=== PATIENT | male | born 1945 | race Caucasian/White ===

== ENCOUNTER 2020-12-25 08:32 | Inpatient (IN) ==
[2020-12-25] MEDS ORDERED: *HR* Ticagrelor 90 MG TABLET PO STA (08:52)
[2020-12-25] MEDS ORDERED: ISOVUE-370 200 ML INFUS..BTL ONE (08:53)
[2020-12-25] MEDS ORDERED: Heparin 1,000 UNITS/500 mL 500 ML ONE (08:53)
[2020-12-25] MEDS ORDERED: 0.9 % Sodium Chloride 1,000 ML ONE ×2 (08:53→08:55)
[2020-12-25] MEDS ORDERED: Nitroglycerin 1,000 MCG/5 ML VIAL IV ONE (08:53)
[2020-12-25] MEDS ORDERED: *HR* Heparin 10,000 UNIT/10 ML VIAL ONE (08:53)
[2020-12-25] MEDS ORDERED: Aspirin 325 MG TABLET PO ONE (08:54)
[2020-12-25] MEDS ORDERED: Aspirin 81 MG TAB.CHEW ONE (08:55)
[2020-12-25] MEDS ORDERED: *HR* Heparin 5,000 UNIT/ML VIAL ONE (08:55)
[2020-12-25] MEDS ORDERED: *HR* Ticagrelor 90 MG TABLET ONE (08:55)
[2020-12-25] MEDS ORDERED: *HR* Heparin 5,000 UNIT/ML VIAL IVP STA (08:55)
[2020-12-25 08:58] LABS: Basophils # 0.1 K/mcL (0.0-0.2); Basophils % 1.1 %; Eosinophils # 0.2 K/mcL (0.0-0.6); Hematocrit 40.2 % (37.5-50.1); Hemoglobin 13.8 g/dL (12.9-16.9); Immature Granulocytes % 0.2 % (0-4); Lymphocytes # 1.7 K/mcL (0.6-4.6); Lymphocytes % 29.9 %; Mean Corpuscular HGB Conc 34.3 g/dL (31.6-35.5); Mean Corpuscular Hemoglobin 32.7 pg (28.0-33.3); Mean Corpuscular Volume 95.3 fL (83.0-100.0); Mean Platelet Volume 9.8 fL (9.4-12.4); Monocytes # 0.5 K/mcL (0.0-1.3); Monocytes % 8.8 %; Neutrophils # 3.2 K/mcL (1.6-8.9); Platelet Count 149 K/mcL (140-400); Red Blood Count 4.22 M/mcL (4.19-5.50); Red Cell Distribution Width 14.3 % (11.5-14.5); White Blood Count 5.7 K/mcL (4.3-11.1)
[2020-12-25] MEDS ORDERED: 0.9 % Sodium Chloride 500 ML IVC ONE (08:59)
[2020-12-25] MEDS ORDERED: *HR* FentaNYL (PF) 100 MCG/2 ML VIAL ONE (09:00)
[2020-12-25] MEDS ORDERED: *HR* Midazolam HCl 2 MG/2 ML VIAL ONE (09:00)
[2020-12-25 09:21] LABS: Blood Urea Nitrogen 28 mg/dL (8-23); Calcium 10.3 mg/dL (8.6-10.3); Carbon Dioxide 27 mEq/L (23-29); Chloride 106 mEq/L (98-107); Glucose 182 mg/dL (70-105); Osmolality,Calculated 296 (280-300); Potassium 4.2 mEq/L (3.5-5.1); Sodium 138 mEq/L (136-145); Troponin I < 0.03 ng/mL (< 0.04)
[2020-12-25 09:56] LABS: BUN/Creatinine Ratio 18 (6-26); eGFR For African Americans 53 (> 60); eGFR For Non-African Americans 44 (> 60)
[2020-12-25] MEDS ORDERED: Perflutren Lipid Microsphere 1.3 ML in 0.9 % Sodium Chloride 8.7 ML IVP PRN (10:00)
[2020-12-25] MEDS ORDERED: *HR* Atropine Sulfate 1 MG/10 ML SYRINGE ONE (10:03)
[2020-12-25] MEDS ORDERED: *HR* Heparin 5,000 UNIT/ML VIAL IVP PRN ×2 (10:13)
[2020-12-25] MEDS ORDERED: 0.9 % Sodium Chloride 500 ML IVC SCH (10:15)
[2020-12-25] MEDS: Heparin 25,000UNIT/250ML 1/2NS 25,000 UNIT/250 ML IV.SOLN IVC SCH (11:32)
[2020-12-25 11:45] LABS: Heparin anti-factor XA UFH 0.63 IU/mL (0.30-0.70); INR 1.1; Prothrombin Time 13.1 Seconds (9.4-12.1)
[2020-12-25] MEDS ORDERED: Dextrose Gel 15 GM/37.5 ML TUBE PO PRN ×2 (13:22)
[2020-12-25] MEDS ORDERED: *HR* Dextrose 50 % in Water (Vial) 50 ML VIAL IVP PRN (13:22)
[2020-12-25] MEDS ORDERED: D5% in Water 1,000 ML IVC PRN (13:22)
[2020-12-25] MEDS: Insulin LISPRO 300 UNITS/3 ML VIAL SUBQ SCH ×2 (16:48→20:24)
[2020-12-26 07:34] LABS: Basophils # 0.1 K/mcL (0.0-0.2); Eosinophils # 0.2 K/mcL (0.0-0.6); Eosinophils % 3.1 %; Hematocrit 37.9 % (37.5-50.1); Immature Granulocytes % 0.2 % (0-4); Immature Platelets 3.1 % (1.1-6.1); Lymphocytes # 1.7 K/mcL (0.6-4.6); Lymphocytes % 32.4 %; Mean Corpuscular HGB Conc 34.3 g/dL (31.6-35.5); Mean Corpuscular Hemoglobin 32.3 pg (28.0-33.3); Mean Platelet Volume 9.7 fL (9.4-12.4); Monocytes # 0.5 K/mcL (0.0-1.3); Monocytes % 9.2 %; Neutrophils # 2.8 K/mcL (1.6-8.9); Platelet Count 146 K/mcL (140-400); Red Blood Count 4.03 M/mcL (4.19-5.50); Red Cell Distribution Width 14.3 % (11.5-14.5); Segmented Neutrophils % 54.1 %; White Blood Count 5.2 K/mcL (4.3-11.1)
[2020-12-26 07:36] LABS: INR 1.1; Prothrombin Time 12.7 Seconds (9.4-12.1)
[2020-12-26 07:39] LABS: Activated Partial Thrombo Time 99.1 Seconds (26.0-36.0)
[2020-12-26 07:52] LABS: BUN/Creatinine Ratio 14 (6-26); Blood Urea Nitrogen 18 mg/dL (8-23); Calcium 8.7 mg/dL (8.6-10.3); Carbon Dioxide 24 mEq/L (23-29); Chloride 108 mEq/L (98-107); Glucose 124 mg/dL (70-105); Magnesium 1.6 mg/dL (1.6-2.6); Osmolality,Calculated 287 (280-300); Phosphorous 1.9 mg/dL (2.7-4.5); Potassium 3.8 mEq/L (3.5-5.1); Sodium 137 mEq/L (136-145); eGFR For African Americans > 60 (> 60); eGFR For Non-African Americans 53 (> 60)
[2020-12-26] MEDS: Insulin LISPRO 300 UNITS/3 ML VIAL SUBQ SCH ×4 (08:10→19:31)
[2020-12-26] MEDS: Aspirin 81 MG TAB.CHEW PO SCH (08:12)
[2020-12-26] MEDS: Finasteride 5 MG TABLET PO SCH (08:13)
[2020-12-26 08:45] LABS: Troponin I < 0.03 ng/mL (< 0.04)
[2020-12-26] MEDS ORDERED: NON-FORMULARY MEDICATION 1 EACH EACH (Mirabegron [Myrbetriq] 50 MG Tab.Er.24h) PO SCH (09:00)
[2020-12-26] MEDS ORDERED: *HR* Heparin 10,000 UNIT/10 ML VIAL ONE (09:04)
[2020-12-26] MEDS ORDERED: ISOVUE-370 200 ML INFUS..BTL ONE (09:04)
[2020-12-26] MEDS ORDERED: Nitroglycerin 1,000 MCG/5 ML VIAL IV ONE (09:04)
[2020-12-26] MEDS ORDERED: 0.9 % Sodium Chloride 1,000 ML ONE (09:04)
[2020-12-26] MEDS ORDERED: Heparin 1,000 UNITS/500 mL 1,000 ML ONE (09:04)
[2020-12-26] MEDS: Cangrelor tetrasodium 50 MG in 0.9 % Sodium Chloride 250 ML IVPB SCH ×4 (10:09→20:22)
[2020-12-26] MEDS ORDERED: *HR* Midazolam HCl 2 MG/2 ML VIAL ONE (12:28)
[2020-12-26] MEDS ORDERED: Heparin 1,000 UNITS/500 mL 500 ML ONE (12:29)
[2020-12-26] MEDS ORDERED: *HR* FentaNYL (PF) 100 MCG/2 ML VIAL ONE (12:29)
[2020-12-26] MEDS ORDERED: *HR* Atropine Sulfate 1 MG/10 ML SYRINGE ONE (13:16)
[2020-12-26] MEDS ORDERED: 0.9 % Sodium Chloride 1,000 ML IVC SCH (14:45)
[2020-12-26] MEDS: *HR* OxyCODONE/APAP 5/325 TABLET PO PRN ×2 (16:06→22:07)
[2020-12-26] MEDS: Heparin 25,000UNIT/250ML 1/2NS 25,000 UNIT/250 ML IV.SOLN IVC SCH (21:21)
[2020-12-27] MEDS: *HR* OxyCODONE/APAP 5/325 TABLET PO PRN ×3 (04:11→19:16)
[2020-12-27 04:27] LABS: Hematocrit 37.3 % (37.5-50.1); Hemoglobin 12.9 g/dL (12.9-16.9)
[2020-12-27 04:42] LABS: BUN/Creatinine Ratio 12 (6-26); Blood Urea Nitrogen 16 mg/dL (8-23); Calcium 8.1 mg/dL (8.6-10.3); Carbon Dioxide 23 mEq/L (23-29); Chloride 109 mEq/L (98-107); Glucose 112 mg/dL (70-105); Magnesium 1.6 mg/dL (1.6-2.6); Osmolality,Calculated 286 (280-300); Phosphorous 1.4 mg/dL (2.7-4.5); Potassium 3.6 mEq/L (3.5-5.1); Sodium 137 mEq/L (136-145); eGFR For African Americans > 60 (> 60); eGFR For Non-African Americans 54 (> 60)
[2020-12-27 04:43] LABS: Troponin I 0.03 ng/mL (< 0.04)
[2020-12-27] MEDS: Cangrelor tetrasodium 50 MG in 0.9 % Sodium Chloride 250 ML IVC SCH (06:56)
[2020-12-27] MEDS: Finasteride 5 MG TABLET PO SCH (07:33)
[2020-12-27] MEDS: Aspirin 81 MG TAB.CHEW PO SCH (07:33)
[2020-12-27] MEDS: Insulin LISPRO 300 UNITS/3 ML VIAL SUBQ SCH ×4 (07:51→20:02)
[2020-12-27] MEDS: Heparin 25,000UNIT/250ML 1/2NS 25,000 UNIT/250 ML IV.SOLN IVC SCH (10:59)
[2020-12-27] MEDS ORDERED: Ipratropium/Albuterol Neb 3 ML IH PRN (11:31)
[2020-12-27 16:42] LABS: VBG Ionized Calcium 1.11 mmol/L (1.15-1.35)
[2020-12-27 17:00] LABS: BUN/Creatinine Ratio 13 (6-26); Blood Urea Nitrogen 17 mg/dL (8-23); Calcium 8.1 mg/dL (8.6-10.3); Carbon Dioxide 21 mEq/L (23-29); Chloride 110 mEq/L (98-107); Glucose 111 mg/dL (70-105); Magnesium 2.1 mg/dL (1.6-2.6); Osmolality,Calculated 286 (280-300); Phosphorous 1.6 mg/dL (2.7-4.5); Potassium 4.3 mEq/L (3.5-5.1); Sodium 137 mEq/L (136-145); eGFR For African Americans > 60 (> 60); eGFR For Non-African Americans 53 (> 60)
[2020-12-28] MEDS: Cangrelor tetrasodium 50 MG in 0.9 % Sodium Chloride 250 ML IVC SCH ×2 (00:55→18:30)
[2020-12-28 03:30] LABS: Hematocrit 39.2 % (37.5-50.1); Hemoglobin 13.4 g/dL (12.9-16.9); Mean Corpuscular HGB Conc 34.2 g/dL (31.6-35.5); Mean Corpuscular Hemoglobin 32.6 pg (28.0-33.3); Mean Corpuscular Volume 95.4 fL (83.0-100.0); Mean Platelet Volume 10.1 fL (9.4-12.4); Platelet Count 113 K/mcL (140-400); Red Blood Count 4.11 M/mcL (4.19-5.50); Red Cell Distribution Width 14.7 % (11.5-14.5); White Blood Count 6.5 K/mcL (4.3-11.1)
[2020-12-28 03:36] LABS: VBG Ionized Calcium 0.99 mmol/L (1.15-1.35)
[2020-12-28 03:46] LABS: BUN/Creatinine Ratio 12 (6-26); Blood Urea Nitrogen 15 mg/dL (8-23); Calcium 8.1 mg/dL (8.6-10.3); Carbon Dioxide 22 mEq/L (23-29); Chloride 109 mEq/L (98-107); Glucose 137 mg/dL (70-105); Osmolality,Calculated 285 (280-300); Phosphorous 2.2 mg/dL (2.7-4.5); Potassium 4.3 mEq/L (3.5-5.1); Sodium 136 mEq/L (136-145); eGFR For African Americans > 60 (> 60); eGFR For Non-African Americans 55 (> 60)
[2020-12-28] MEDS: Calcium Gluconate 1gm/50mL 1 GM/50 ML BAG IVPB PRN ×2 (04:30→05:30)
[2020-12-28] MEDS: Aspirin 81 MG TAB.CHEW PO SCH (07:40)
[2020-12-28] MEDS: Finasteride 5 MG TABLET PO SCH (07:40)
[2020-12-28] MEDS: Insulin LISPRO 300 UNITS/3 ML VIAL SUBQ SCH ×4 (07:41→19:54)
[2020-12-28] MEDS: *HR* OxyCODONE/APAP 5/325 TABLET PO PRN ×2 (07:51→19:54)
[2020-12-28] MEDS: Heparin 25,000UNIT/250ML 1/2NS 25,000 UNIT/250 ML IV.SOLN IVC SCH (10:48)
[2020-12-28 12:42] LABS: VBG Ionized Calcium 1.21 mmol/L (1.15-1.35)
[2020-12-28 13:00] LABS: BUN/Creatinine Ratio 13 (6-26); Blood Urea Nitrogen 17 mg/dL (8-23); Calcium 9.2 mg/dL (8.6-10.3); Carbon Dioxide 24 mEq/L (23-29); Chloride 106 mEq/L (98-107); Glucose 102 mg/dL (70-105); Osmolality,Calculated 282 (280-300); Potassium 4.5 mEq/L (3.5-5.1); Sodium 135 mEq/L (136-145); eGFR For African Americans > 60 (> 60); eGFR For Non-African Americans 52 (> 60)
[2020-12-28] MEDS ORDERED: Albumin Human 5% 12.5 GM/250 ML IV.SOLN ONE (14:24)
[2020-12-28] MEDS: Albumin Human 5% 12.5 GM/250 ML IV.SOLN IVC SCH ×2 (14:45→18:29)
[2020-12-29] MEDS: Acetaminophen 325 MG TABLET PO PRN (04:16)
[2020-12-29 04:17] LABS: Basophils # 0.1 K/mcL (0.0-0.2); Eosinophils # 0.3 K/mcL (0.0-0.6); Hematocrit 38.7 % (37.5-50.1); Hemoglobin 13.2 g/dL (12.9-16.9); Immature Granulocytes % 0.1 % (0-4); Immature Platelets 3.1 % (1.1-6.1); Lymphocytes # 1.7 K/mcL (0.6-4.6); Mean Corpuscular HGB Conc 34.1 g/dL (31.6-35.5); Mean Corpuscular Hemoglobin 32.2 pg (28.0-33.3); Mean Corpuscular Volume 94.4 fL (83.0-100.0); Mean Platelet Volume 9.9 fL (9.4-12.4); Monocytes # 0.7 K/mcL (0.0-1.3); Monocytes % 10.5 %; Neutrophils # 4.1 K/mcL (1.6-8.9); Platelet Count 107 K/mcL (140-400); Segmented Neutrophils % 59.4 %
[2020-12-29 04:27] LABS: VBG Ionized Calcium 1.19 mmol/L (1.15-1.35)
[2020-12-29 04:33] LABS: Alanine Aminotransferase 15 Units/L (7-52); Albumin 3.6 g/dL (3.5-5.7); Albumin/Globulin Ratio 1.5 (1.1-2.2); Alkaline Phosphatase 37 Units/L (34-104); Aspartate Amino Transferase 17 Units/L (13-39); BUN/Creatinine Ratio 13 (6-26); Blood Urea Nitrogen 16 mg/dL (8-23); Calcium 8.6 mg/dL (8.6-10.3); Carbon Dioxide 22 mEq/L (23-29); Chloride 108 mEq/L (98-107); Globulin 2.4 g/dL (2.4-3.5); Glucose 141 mg/dL (70-105); Magnesium 1.8 mg/dL (1.6-2.6); Osmolality,Calculated 284 (280-300); Phosphorous 2.4 mg/dL (2.7-4.5); Sodium 135 mEq/L (136-145); eGFR For African Americans > 60 (> 60); eGFR For Non-African Americans 59 (> 60)
[2020-12-29] MEDS ORDERED: Acetaminophen 325 MG TABLET PO SCH (06:00)
[2020-12-29] MEDS: Insulin LISPRO 300 UNITS/3 ML VIAL SUBQ SCH ×4 (08:11→19:37)
[2020-12-29] MEDS: Aspirin 81 MG TAB.CHEW PO SCH (08:20)
[2020-12-29] MEDS: Finasteride 5 MG TABLET PO SCH (08:20)
[2020-12-29] MEDS: Heparin 25,000UNIT/250ML 1/2NS 25,000 UNIT/250 ML IV.SOLN IVC SCH (12:18)
[2020-12-29] MEDS: Cangrelor tetrasodium 50 MG in 0.9 % Sodium Chloride 250 ML IVC SCH (13:03)
[2020-12-29] MEDS: *HR* OxyCODONE/APAP 5/325 TABLET PO PRN (14:54)
[2020-12-29] MEDS: Methyl Salicylate/Menthol 85 APPL/85 GM TUBE TP PRN (22:26)
[2020-12-30 04:47] LABS: Basophils # 0.1 K/mcL (0.0-0.2); Basophils % 0.8 %; Eosinophils # 0.4 K/mcL (0.0-0.6); Eosinophils % 5.6 %; Hematocrit 35.8 % (37.5-50.1); Hemoglobin 12.3 g/dL (12.9-16.9); Immature Granulocytes % 0.3 % (0-4); Immature Platelets 3.1 % (1.1-6.1); Lymphocytes # 1.8 K/mcL (0.6-4.6); Lymphocytes % 27.7 %; Mean Corpuscular HGB Conc 34.4 g/dL (31.6-35.5); Mean Corpuscular Hemoglobin 32.5 pg (28.0-33.3); Mean Corpuscular Volume 94.5 fL (83.0-100.0); Mean Platelet Volume 9.7 fL (9.4-12.4); Monocytes # 0.7 K/mcL (0.0-1.3); Monocytes % 10.6 %; Neutrophils # 3.5 K/mcL (1.6-8.9); Platelet Count 114 K/mcL (140-400); Red Blood Count 3.79 M/mcL (4.19-5.50); Red Cell Distribution Width 14.2 % (11.5-14.5); White Blood Count 6.4 K/mcL (4.3-11.1)
[2020-12-30 04:49] LABS: VBG Ionized Calcium 1.14 mmol/L (1.15-1.35)
[2020-12-30 05:02] LABS: Albumin 3.1 g/dL (3.5-5.7); Albumin/Globulin Ratio 1.3 (1.1-2.2); Bilirubin,Total 0.8 mg/dL (0.3-1.0); Calcium 8.1 mg/dL (8.6-10.3); Globulin 2.3 g/dL (2.4-3.5); Magnesium 1.9 mg/dL (1.6-2.6); Phosphorous 2.7 mg/dL (2.7-4.5); Potassium 4.2 mEq/L (3.5-5.1); Total Protein 5.4 g/dL (6.4-8.9)
[2020-12-30] MEDS: Insulin LISPRO 300 UNITS/3 ML VIAL SUBQ SCH ×4 (08:09→19:57)
[2020-12-30] MEDS: Finasteride 5 MG TABLET PO SCH (08:11)
[2020-12-30] MEDS: Cangrelor tetrasodium 50 MG in 0.9 % Sodium Chloride 250 ML IVC SCH (08:11)
[2020-12-30] MEDS: Aspirin 81 MG TAB.CHEW PO SCH (08:11)
[2020-12-30 11:17] LABS: Estimated Average Glucose 146 mg/dl; Hemoglobin A1C 6.7 %
[2020-12-30 11:20] LABS: Chol/HDL Ratio 2.3 (0-4.9)
[2020-12-30] MEDS: Heparin 25,000UNIT/250ML 1/2NS 25,000 UNIT/250 ML IV.SOLN IVC SCH (12:50)
[2020-12-30] MEDS: Acetaminophen 325 MG TABLET PO PRN (19:57)
[2020-12-30] MEDS: Methyl Salicylate/Menthol 85 APPL/85 GM TUBE TP PRN (20:00)
[2020-12-31] MEDS: Cangrelor tetrasodium 50 MG in 0.9 % Sodium Chloride 250 ML IVC SCH ×2 (03:03→23:07)
[2020-12-31 04:39] LABS: Immature Granulocytes % 0.2 % (0-4); Mean Corpuscular Volume 93.7 fL (83.0-100.0)
[2020-12-31 04:40] LABS: Basophils # 0.1 K/mcL (0.0-0.2); Eosinophils # 0.4 K/mcL (0.0-0.6); Eosinophils % 5.9 %; Hematocrit 35.8 % (37.5-50.1); Hemoglobin 12.6 g/dL (12.9-16.9); Immature Platelets 2.8 % (1.1-6.1); Lymphocytes % 34.5 %; Mean Corpuscular HGB Conc 35.2 g/dL (31.6-35.5); Mean Platelet Volume 9.8 fL (9.4-12.4); Monocytes # 0.6 K/mcL (0.0-1.3); Monocytes % 9.8 %; Neutrophils # 2.9 K/mcL (1.6-8.9); Platelet Count 141 K/mcL (140-400); Red Blood Count 3.82 M/mcL (4.19-5.50); Red Cell Distribution Width 13.8 % (11.5-14.5); Segmented Neutrophils % 48.6 %; White Blood Count 5.9 K/mcL (4.3-11.1)
[2020-12-31 04:59] LABS: Albumin 3.2 g/dL (3.5-5.7); Albumin/Globulin Ratio 1.1 (1.1-2.2); Bilirubin,Total 0.9 mg/dL (0.3-1.0); Calcium 8.9 mg/dL (8.6-10.3); Globulin 2.8 g/dL (2.4-3.5); Magnesium 2.1 mg/dL (1.6-2.6); Phosphorous 3.6 mg/dL (2.7-4.5); Potassium 4.6 mEq/L (3.5-5.1)
[2020-12-31] MEDS: Aspirin 81 MG TAB.CHEW PO SCH (08:04)
[2020-12-31] MEDS: Finasteride 5 MG TABLET PO SCH (08:04)
[2020-12-31] MEDS: Insulin LISPRO 300 UNITS/3 ML VIAL SUBQ SCH ×4 (08:04→20:08)
[2020-12-31] MEDS ORDERED: Mannitol 25% vial 12.5 GM/50 ML VIAL IVPB ONE (10:23)
[2020-12-31] MEDS ORDERED: *HR* Heparin 10,000 UNIT/10 ML VIAL IR ONE (10:23)
[2020-12-31] MEDS ORDERED: Lidocaine 2% Syringe 100 MG/5 ML IVP ONE (10:23)
[2020-12-31] MEDS ORDERED: *HR* Magnesium Sulfate 2 GM/50 ML PIGGYBACK IVPB ONE (10:23)
[2020-12-31] MEDS ORDERED: *HR* Phenylephrine 10 MG/ML VIAL IVC ONE (10:23)
[2020-12-31] MEDS ORDERED: Tranexamic Acid 1,000 MG/10 ML VIAL IR ONE (10:23)
[2020-12-31] MEDS ORDERED: Albumin Human 25% 25 GM/100 ML IV.SOLN IVPB ONE (10:23)
[2020-12-31] MEDS: Heparin 25,000UNIT/250ML 1/2NS 25,000 UNIT/250 ML IV.SOLN IVC SCH (10:38)
[2020-12-31] MEDS: Chlorhexidine Rinse 15 ML MOUTHWASH MM SCH (20:07)
[2020-12-31] MEDS: Acetaminophen 325 MG TABLET PO PRN (20:07)
[2021-01-01 05:35] LABS: Basophils # 0.1 K/mcL (0.0-0.2); Basophils % 1.1 %; Eosinophils # 0.4 K/mcL (0.0-0.6); Eosinophils % 5.7 %; Hematocrit 35.8 % (37.5-50.1); Hemoglobin 12.8 g/dL (12.9-16.9); Immature Granulocytes % 0.3 % (0-4); Lymphocytes # 2.3 K/mcL (0.6-4.6); Lymphocytes % 33.8 %; Mean Corpuscular HGB Conc 35.8 g/dL (31.6-35.5); Mean Corpuscular Hemoglobin 33.2 pg (28.0-33.3); Mean Platelet Volume 9.6 fL (9.4-12.4); Monocytes # 0.7 K/mcL (0.0-1.3); Monocytes % 10.8 %; Neutrophils # 3.2 K/mcL (1.6-8.9); Platelet Count 160 K/mcL (140-400); Red Blood Count 3.85 M/mcL (4.19-5.50); Segmented Neutrophils % 48.3 %; White Blood Count 6.7 K/mcL (4.3-11.1)
[2021-01-01 05:40] LABS: Alanine Aminotransferase 16 Units/L (7-52); Albumin 3.4 g/dL (3.5-5.7); Albumin/Globulin Ratio 1.2 (1.1-2.2); Alkaline Phosphatase 48 Units/L (34-104); Aspartate Amino Transferase 19 Units/L (13-39); BUN/Creatinine Ratio 23 (6-26); Bilirubin,Total 0.7 mg/dL (0.3-1.0); Blood Urea Nitrogen 32 mg/dL (8-23); Carbon Dioxide 21 mEq/L (23-29); Chloride 106 mEq/L (98-107); Globulin 2.8 g/dL (2.4-3.5); Glucose 141 mg/dL (70-105); Magnesium 1.7 mg/dL (1.6-2.6); Osmolality,Calculated 287 (280-300); Phosphorous 3.1 mg/dL (2.7-4.5); Potassium 4.5 mEq/L (3.5-5.1); Sodium 134 mEq/L (136-145); Total Protein 6.2 g/dL (6.4-8.9); eGFR For African Americans > 60 (> 60); eGFR For Non-African Americans 50 (> 60)
[2021-01-01] MEDS ORDERED: Clindamycin 900 MG/50 ML 900 MG/50 ML IV.SOLN IVPB ONE ×2 (06:00→09:35)
[2021-01-01] MEDS ORDERED: Aspirin 81 MG TAB.CHEW PO ONE (06:00)
[2021-01-01] MEDS: Chlorhexidine Rinse 15 ML MOUTHWASH MM SCH ×2 (06:08→22:03)
[2021-01-01 06:30] LABS: Platelet Estimate Normal (Normal); Reactive Lymphocytes Present (Not Present)
[2021-01-01] MEDS ORDERED: *HR* Vasopressin 20 UNIT/ML VIAL ONE ×2 (07:36→23:29)
[2021-01-01] MEDS ORDERED: *HR* Midazolam HCl 5 MG/5 ML VIAL IVP ONE ×2 (07:37→23:23)
[2021-01-01] MEDS ORDERED: *HR* FentaNYL (PF) 1,000 MCG/20 ML VIAL ONE (07:37)
[2021-01-01] MEDS ORDERED: *HR* Propofol 200 MG/20 ML VIAL IVP ONE (07:38)
[2021-01-01] MEDS ORDERED: *HR* Rocuronium Bromide 50 MG/5 ML VIAL ONE ×3 (07:38→23:23)
[2021-01-01] MEDS ORDERED: Lidocaine 2% Syringe 100 MG/5 ML ONE ×2 (07:39→23:24)
[2021-01-01] MEDS ORDERED: *HR* Magnesium Sulfate 1 GM/2 ML VIAL ONE (07:39)
[2021-01-01] MEDS ORDERED: Famotidine 20 MG/2 ML VIAL ONE (07:39)
[2021-01-01] MEDS ORDERED: Tranexamic Acid 1,000 MG/10 ML VIAL ONE (07:39)
[2021-01-01] MEDS ORDERED: Dextrose 50 % in Water (Vial) 30 ML, Sodium Bicarbonate 20 MEQ, Potassium Chloride 15 M... TH ONE (08:15)
[2021-01-01] MEDS ORDERED: Heparin 15,000 UNIT in 0.9 % Sodium Chloride 500 ML IV ONE (08:15)
[2021-01-01] MEDS ORDERED: Norepinephrine 4 MG in 0.9 % Sodium Chloride 250 ML IVC PRN (08:15)
[2021-01-01] MEDS ORDERED: Dextrose 50 % in Water (Vial) 30 ML, Sodium Bicarbonate 20 MEQ, Lidocaine 1% 5 ML, Insu... TH ONE ×3 (08:15)
[2021-01-01 08:32] LABS: ABG Base Excess -3 mEq/L (-2 to 3); ABG Chloride 108 mEq/L (98-107); ABG Glucose 140 mg/dL (60-95); ABG HCO3 23 mEq/L (21-27); ABG Oxygen Saturation 100 % (95-98); ABG PCO2 40 mmHg (35-45); ABG PH 7.36 pH Units (7.32-7.45); ABG PO2 457 mmHg (85-104); ABG TCO2 24 mEq/L (20-26)
[2021-01-01 09:45] LABS: ABG Base Excess -4 mEq/L (-2 to 3); ABG Chloride 106 mEq/L (98-107); ABG Glucose 154 mg/dL (60-95); ABG HCO3 22 mEq/L (21-27); ABG Ionized Calcium 1.16 mmol/L (1.15-1.35); ABG Oxygen Saturation 100 % (95-98); ABG PCO2 44 mmHg (35-45); ABG PH 7.31 pH Units (7.32-7.45); ABG PO2 320 mmHg (85-104); ABG TCO2 23 mEq/L (20-26)
[2021-01-01] MEDS ORDERED: Albumin Human 5% 12.5 GM/250 ML IV.SOLN ONE ×2 (09:54→17:51)
[2021-01-01] MEDS ORDERED: Protamine Sulfate 250 MG/25 ML VIAL IVP ONE (10:31)
[2021-01-01] MEDS ORDERED: Calcium Gluconate 1,000 MG/10 ML VIAL ONE (10:31)
[2021-01-01 10:44] LABS: ABG Base Excess -1 mEq/L (-2 to 3); ABG Chloride 102 mEq/L (98-107); ABG Glucose 154 mg/dL (60-95); ABG HCO3 24 mEq/L (21-27); ABG Ionized Calcium 1.05 mmol/L (1.15-1.35); ABG Oxygen Saturation 100 % (95-98); ABG PCO2 38 mmHg (35-45); ABG PH 7.41 pH Units (7.32-7.45); ABG PO2 628 mmHg (85-104); ABG TCO2 25 mEq/L (20-26)
[2021-01-01 11:07] LABS: ABG Base Excess -1 mEq/L (-2 to 3); ABG Chloride 102 mEq/L (98-107); ABG Glucose 133 mg/dL (60-95); ABG HCO3 25 mEq/L (21-27); ABG Ionized Calcium 1.29 mmol/L (1.15-1.35); ABG Oxygen Saturation 100 % (95-98); ABG PCO2 42 mmHg (35-45); ABG PH 7.38 pH Units (7.32-7.45); ABG PO2 608 mmHg (85-104); ABG TCO2 26 mEq/L (20-26)
[2021-01-01 11:27] LABS: ABG Base Excess -4 mEq/L (-2 to 3); ABG Chloride 104 mEq/L (98-107); ABG Glucose 111 mg/dL (60-95); ABG HCO3 22 mEq/L (21-27); ABG Ionized Calcium 1.17 mmol/L (1.15-1.35); ABG Oxygen Saturation 100 % (95-98); ABG PCO2 42 mmHg (35-45); ABG PH 7.33 pH Units (7.32-7.45); ABG PO2 236 mmHg (85-104); ABG TCO2 23 mEq/L (20-26)
[2021-01-01] MEDS ORDERED: Ondansetron 4 MG/2 ML VIAL IVP PRN (11:34)
[2021-01-01] MEDS ORDERED: Acetaminophen 650 MG RECTAL SUPP RC PRN (11:34)
[2021-01-01] MEDS ORDERED: Insulin Regular, Human 100 UNIT/ML IV PRN (11:34)
[2021-01-01] MEDS ORDERED: Potassium Chloride 40 MEQ/200 ML BAG IVPB PRN (11:34)
[2021-01-01] MEDS ORDERED: *HR* Dextrose 50 % in Water (Vial) 50 ML VIAL IVP PRN (11:34)
[2021-01-01] MEDS ORDERED: Calcium Gluconate 1gm/50mL 1 GM/50 ML BAG IVPB PRN (11:38)
[2021-01-01] MEDS ORDERED: 0.9 % Sodium Chloride w KCl 20 MEQ/1,000 ML MLS IVC SCH (11:45)
[2021-01-01] MEDS: Norepinephrine 4 MG/254 ML IV.SOLN IVC SCH ×3 (12:11→19:40)
[2021-01-01] MEDS: Heparin 25,000UNIT/250ML 1/2NS 25,000 UNIT/250 ML IV.SOLN IVC SCH (12:18)
[2021-01-01] MEDS: Finasteride 5 MG TABLET PO SCH (12:18)
[2021-01-01] MEDS: Albumin Human 5% 12.5 GM/250 ML IV.SOLN IVPB PRN ×4 (12:35→16:21)
[2021-01-01 12:36] LABS: ABG Base Excess -2 mEq/L (-2 to 3); ABG HCO3 24 mEq/L (21-27); ABG Oxygen Saturation 94 % (95-98); ABG PCO2 46 mmHg (35-45); ABG PH 7.33 pH Units (7.32-7.45); ABG PO2 76 mmHg (85-104); ABG TCO2 25 mEq/L (20-26)
[2021-01-01 12:37] LABS: Basophils % 0.5 %; Eosinophils # 0.2 K/mcL (0.0-0.6); Eosinophils % 1.8 %; Hematocrit 28.4 % (37.5-50.1); Immature Granulocytes % 0.1 % (0-4); Lymphocytes % 12.2 %; Mean Corpuscular HGB Conc 34.2 g/dL (31.6-35.5); Mean Corpuscular Hemoglobin 32.7 pg (28.0-33.3); Mean Corpuscular Volume 95.6 fL (83.0-100.0); Mean Platelet Volume 9.6 fL (9.4-12.4); Monocytes # 0.6 K/mcL (0.0-1.3); Neutrophils # 6.5 K/mcL (1.6-8.9); Platelet Count 145 K/mcL (140-400); Red Blood Count 2.97 M/mcL (4.19-5.50); Red Cell Distribution Width 13.9 % (11.5-14.5); Segmented Neutrophils % 78.4 %; White Blood Count 8.3 K/mcL (4.3-11.1)
[2021-01-01 12:40] LABS: Hemoglobin 9.7 g/dL (12.9-16.9)
[2021-01-01 13:00] LABS: BUN/Creatinine Ratio 23 (6-26); Blood Urea Nitrogen 26 mg/dL (8-23); Calcium 8.2 mg/dL (8.6-10.3); Carbon Dioxide 23 mEq/L (23-29); Chloride 104 mEq/L (98-107); Glucose 116 mg/dL (70-105); Magnesium 2.6 mg/dL (1.6-2.6); Osmolality,Calculated 288 (280-300); Potassium 4.3 mEq/L (3.5-5.1); Sodium 136 mEq/L (136-145); eGFR For African Americans > 60 (> 60); eGFR For Non-African Americans > 60 (> 60)
[2021-01-01 13:03] LABS: INR 1.5; Prothrombin Time 17.3 Seconds (9.4-12.1)
[2021-01-01 13:08] LABS: Activated Partial Thrombo Time 33.6 Seconds (26.0-36.0)
[2021-01-01 13:23] LABS: ABG Base Excess -4 mEq/L (-2 to 3); ABG Chloride 101 mEq/L (98-107); ABG Glucose 174 mg/dL (60-95); ABG HCO3 21 mEq/L (21-27); ABG Ionized Calcium 1.01 mmol/L (1.15-1.35); ABG PCO2 36 mmHg (35-45); ABG PH 7.38 pH Units (7.32-7.45); ABG PO2 > 630 mmHg (85-104); ABG TCO2 22 mEq/L (20-26)
[2021-01-01] MEDS: Metoclopramide 10 MG/2 ML VIAL IVP SCH ×3 (13:31→23:02)
[2021-01-01] MEDS: Pantoprazole 40 MG VIAL IVP SCH (13:31)
[2021-01-01] MEDS: *HR* FentaNYL (PF) 100 MCG/2 ML VIAL IVP PRN ×2 (13:40→16:08)
[2021-01-01] MEDS: niCARdipine 20 MG/200 ML MLS IVC SCH ×4 (14:13→20:32)
[2021-01-01] MEDS: Clindamycin 900 MG/50 ML 900 MG/50 ML IV.SOLN IVPB SCH ×2 (15:42→23:02)
[2021-01-01] MEDS: DilTIAZem 50 MG in 0.9 % Sodium Chloride 40 ML IVC SCH ×2 (16:09→23:02)
[2021-01-01 16:44] LABS: ABG Base Excess -4 mEq/L (-2 to 3); ABG HCO3 21 mEq/L (21-27); ABG Oxygen Saturation 96 % (95-98); ABG PCO2 37 mmHg (35-45); ABG PH 7.37 pH Units (7.32-7.45); ABG PO2 82 mmHg (85-104); ABG TCO2 22 mEq/L (20-26)
[2021-01-01] MEDS ORDERED: Artificial Tears SOLN 15 ML BOTTLE BOTH EYES PRN (17:18)
[2021-01-01] MEDS: Dexmedetomidine HCl 400 MCG/100 ML MLS IVC SCH (17:28)
[2021-01-01] MEDS ORDERED: Albumin Human 5% 12.5 GM/250 ML IV.SOLN IVPB ONE ×2 (17:28→17:58)
[2021-01-01] MEDS ORDERED: Amiodarone Premix 150 MG/100 ML BAG IVPB ONE (17:29)
[2021-01-01] MEDS ORDERED: Amiodarone Premix 360 MG/200 ML BAG IVC ONE (17:29)
[2021-01-01] MEDS: FentaNYL (PF) 1,000 MCG/100 ML IV.SOLN IVC SCH (17:59)
[2021-01-01] MEDS ORDERED: 0.9 % Sodium Chloride 250 ML ONE (19:41)
[2021-01-01] MEDS: Vasopressin 40 UNIT in D5% in Water 100 ML IVC SCH (19:50)
[2021-01-01 20:29] LABS: ABG Base Excess -5 mEq/L (-2 to 3); ABG HCO3 20 mEq/L (21-27); ABG Oxygen Saturation 96 % (95-98); ABG PCO2 36 mmHg (35-45); ABG PH 7.35 pH Units (7.32-7.45); ABG PO2 84 mmHg (85-104); ABG TCO2 21 mEq/L (20-26); Blood Gas VT 500 cc
[2021-01-01] MEDS: Artificial Tears SOLN 15 ML BOTTLE BOTH EYES SCH ×2 (20:32→23:01)
[2021-01-01] MEDS ORDERED: WATER IVP ONE ×3 (20:40)
[2021-01-01] MEDS ORDERED: METHYLENE BLUE IVP ONE ×3 (20:40)
[2021-01-01] MEDS ORDERED: D5 IVP ONE ×3 (20:40)
[2021-01-01 21:35] LABS: INR 1.6; Prothrombin Time 18.4 Seconds (9.4-12.1)
[2021-01-01 21:37] LABS: Activated Partial Thrombo Time 43.6 Seconds (26.0-36.0)
[2021-01-01] MEDS: WATER IVP SCH (21:45)
[2021-01-01] MEDS: METHYLENE BLUE IVP SCH (21:45)
[2021-01-01] MEDS: D5 IVP SCH (21:45)
[2021-01-01] MEDS: Norepinephrine 8 MG in 0.9 % Sodium Chloride 250 ML IVC SCH (22:00)
[2021-01-01] MEDS ORDERED: 0.9 % Sodium Chloride 500 ML ONE (22:22)
[2021-01-01] MEDS ORDERED: *HR* FentaNYL (PF) 250 MCG/5 ML VIAL ONE (23:23)
[2021-01-01] MEDS: Amiodarone Premix 360 MG/200 ML BAG IVC SCH ×2 (23:27→23:33)
[2021-01-02 00:08] LABS: Hematocrit 29.7 % (37.5-50.1); Hemoglobin 9.9 g/dL (12.9-16.9)
[2021-01-02 00:13] LABS: ABG Base Excess -6 mEq/L (-2 to 3); ABG Chloride 107 mEq/L (98-107); ABG Glucose 125 mg/dL (60-95); ABG HCO3 21 mEq/L (21-27); ABG Ionized Calcium 0.93 mmol/L (1.15-1.35); ABG Oxygen Saturation 100 % (95-98); ABG PCO2 42 mmHg (35-45); ABG PO2 493 mmHg (85-104); ABG TCO2 22 mEq/L (20-26)
[2021-01-02] MEDS ORDERED: Calcium Gluconate 1,000 MG/10 ML VIAL ONE (00:14)
[2021-01-02] MEDS ORDERED: Ondansetron 4 MG/2 ML VIAL ONE (00:47)
[2021-01-02 00:59] LABS: ABG Base Excess -7 mEq/L (-2 to 3); ABG Chloride 108 mEq/L (98-107); ABG Glucose 121 mg/dL (60-95); ABG HCO3 19 mEq/L (21-27); ABG Ionized Calcium 1.07 mmol/L (1.15-1.35); ABG Oxygen Saturation 100 % (95-98); ABG PCO2 39 mmHg (35-45); ABG PO2 332 mmHg (85-104); ABG TCO2 21 mEq/L (20-26)
[2021-01-02 01:47] LABS: ABG Base Excess -7 mEq/L (-2 to 3); ABG HCO3 20 mEq/L (21-27); ABG Oxygen Saturation 96 % (95-98); ABG PCO2 44 mmHg (35-45); ABG PH 7.27 pH Units (7.32-7.45); ABG PO2 93 mmHg (85-104); ABG TCO2 22 mEq/L (20-26); Blood Gas VT 500 cc
[2021-01-02] MEDS: Dexmedetomidine HCl 400 MCG/100 ML MLS IVC SCH (01:54)
[2021-01-02 01:58] LABS: INR 1.4; Prothrombin Time 15.8 Seconds (9.4-12.1)
[2021-01-02 02:01] LABS: Activated Partial Thrombo Time 30.9 Seconds (26.0-36.0)
[2021-01-02 02:13] LABS: Basophils % 0.1 %; Hematocrit 40.8 % (37.5-50.1); Immature Granulocytes % 0.5 % (0-4); Immature Platelets 5.3 % (1.1-6.1); Lymphocytes # 1.2 K/mcL (0.6-4.6); Lymphocytes % 12.1 %; Mean Corpuscular HGB Conc 34.3 g/dL (31.6-35.5); Mean Corpuscular Hemoglobin 31.2 pg (28.0-33.3); Mean Corpuscular Volume 90.9 fL (83.0-100.0); Mean Platelet Volume 9.7 fL (9.4-12.4); Monocytes # 1.8 K/mcL (0.0-1.3); Monocytes % 17.9 %; Neutrophils # 6.9 K/mcL (1.6-8.9); Red Blood Count 4.49 M/mcL (4.19-5.50); Red Cell Distribution Width 14.6 % (11.5-14.5); Segmented Neutrophils % 69.4 %
[2021-01-02 02:13] LABS: BUN/Creatinine Ratio 22 (6-26); Blood Urea Nitrogen 29 mg/dL (8-23); Calcium 7.4 mg/dL (8.6-10.3); Carbon Dioxide 20 mEq/L (23-29); Chloride 110 mEq/L (98-107); Glucose 99 mg/dL (70-105); Magnesium 1.8 mg/dL (1.6-2.6); Osmolality,Calculated 288 (280-300); Phosphorous 2.6 mg/dL (2.7-4.5); Potassium 4.2 mEq/L (3.5-5.1); Sodium 136 mEq/L (136-145); eGFR For African Americans > 60 (> 60); eGFR For Non-African Americans 52 (> 60)
[2021-01-02 02:17] LABS: Platelet Count 50 K/mcL (140-400)
[2021-01-02] MEDS: niCARdipine 20 MG/200 ML MLS IVC SCH ×2 (03:23→05:15)
[2021-01-02 04:00] LABS: ABG Base Excess -6 mEq/L (-2 to 3); ABG HCO3 21 mEq/L (21-27); ABG Oxygen Saturation 95 % (95-98); ABG PCO2 46 mmHg (35-45); ABG PH 7.27 pH Units (7.32-7.45); ABG PO2 89 mmHg (85-104); ABG TCO2 22 mEq/L (20-26); Blood Gas VT 500 cc
[2021-01-02] MEDS: Metoclopramide 10 MG/2 ML VIAL IVP SCH ×3 (05:14→17:21)
[2021-01-02] MEDS: *HR* OxyCODONE/APAP 5/325 TABLET PO PRN ×4 (05:14→23:02)
[2021-01-02] MEDS: Artificial Tears SOLN 15 ML BOTTLE BOTH EYES SCH ×5 (05:15→19:20)
[2021-01-02] MEDS: Norepinephrine 8 MG in 0.9 % Sodium Chloride 250 ML IVC SCH (05:16)
[2021-01-02 05:25] LABS: Red Cell Distribution Width 14.7 % (11.5-14.5)
[2021-01-02 05:27] LABS: Basophils % 0.2 %; Hematocrit 42.4 % (37.5-50.1); Hemoglobin 14.6 g/dL (12.9-16.9); Immature Granulocytes % 0.4 % (0-4); Immature Platelets 5.3 % (1.1-6.1); Lymphocytes # 1.1 K/mcL (0.6-4.6); Lymphocytes % 10.3 %; Mean Corpuscular HGB Conc 34.4 g/dL (31.6-35.5); Mean Corpuscular Hemoglobin 30.9 pg (28.0-33.3); Mean Corpuscular Volume 89.6 fL (83.0-100.0); Mean Platelet Volume 10.5 fL (9.4-12.4); Monocytes # 1.4 K/mcL (0.0-1.3); Monocytes % 12.7 %; Neutrophils # 8.3 K/mcL (1.6-8.9); Red Blood Count 4.73 M/mcL (4.19-5.50); Segmented Neutrophils % 76.4 %; White Blood Count 10.8 K/mcL (4.3-11.1)
[2021-01-02 05:29] LABS: Platelet Count 60 K/mcL (140-400)
[2021-01-02 05:29] LABS: VBG Ionized Calcium 1.09 mmol/L (1.15-1.35)
[2021-01-02 05:31] LABS: INR 1.2; Prothrombin Time 14.3 Seconds (9.4-12.1)
[2021-01-02 05:34] LABS: Activated Partial Thrombo Time 26.7 Seconds (26.0-36.0)
[2021-01-02 05:53] LABS: Alanine Aminotransferase 13 Units/L (7-52); Albumin 3.6 g/dL (3.5-5.7); Albumin/Globulin Ratio 2.8 (1.1-2.2); Alkaline Phosphatase 28 Units/L (34-104); Aspartate Amino Transferase 25 Units/L (13-39); BUN/Creatinine Ratio 23 (6-26); Blood Urea Nitrogen 32 mg/dL (8-23); Calcium 7.4 mg/dL (8.6-10.3); Carbon Dioxide 20 mEq/L (23-29); Chloride 109 mEq/L (98-107); Globulin 1.3 g/dL (2.4-3.5); Glucose 169 mg/dL (70-105); Osmolality,Calculated 289 (280-300); Phosphorous 3.3 mg/dL (2.7-4.5); Potassium 5.4 mEq/L (3.5-5.1); Sodium 134 mEq/L (136-145); Total Protein 4.9 g/dL (6.4-8.9); eGFR For African Americans > 60 (> 60); eGFR For Non-African Americans 50 (> 60)
[2021-01-02] MEDS ORDERED: 0.9 % Sodium Chloride 1,000 ML ONE (07:16)
[2021-01-02] MEDS ORDERED: 0.9 % Sodium Chloride 500 ML ONE (07:16)
[2021-01-02 07:52] LABS: Mixed Venous Blood pCO2 49 mmHg (44-46); Mixed Venous Blood pH 7.26 pH Units (7.34-7.36); Mixed Venous Blood pO2 90 mmHg (35-45)
[2021-01-02 08:26] LABS: Mixed Venous Blood O2 Hgb 95.5 % (60-80)
[2021-01-02] MEDS: Aspirin Enteric Coated 81 MG Tablet PO SCH (08:46)
[2021-01-02] MEDS: Pantoprazole 40 MG VIAL IVP SCH (08:46)
[2021-01-02] MEDS: Finasteride 5 MG TABLET PO SCH (08:47)
[2021-01-02] MEDS: Furosemide 20 MG/2 ML VIAL IVP SCH ×2 (08:47→21:01)
[2021-01-02] MEDS: Chlorhexidine Rinse 15 ML MOUTHWASH MM SCH ×2 (08:49→21:01)
[2021-01-02] MEDS: Amiodarone Premix 360 MG/200 ML BAG IVC SCH ×2 (10:56→22:56)
[2021-01-02] MEDS: *HR* FentaNYL (PF) 100 MCG/2 ML VIAL IVP PRN ×2 (19:17→21:01)
[2021-01-03] MEDS: Metoclopramide 10 MG/2 ML VIAL IVP SCH ×4 (00:09→18:57)
[2021-01-03] MEDS: Artificial Tears SOLN 15 ML BOTTLE BOTH EYES SCH ×8 (00:09→22:09)
[2021-01-03] MEDS: *HR* FentaNYL (PF) 100 MCG/2 ML VIAL IVP PRN (01:54)
[2021-01-03] MEDS: 0.9 % Sodium Chloride 1,000 ML IVC SCH ×2 (03:31→10:43)
[2021-01-03] MEDS: *HR* OxyCODONE/APAP 5/325 TABLET PO PRN ×3 (05:00→19:02)
[2021-01-03 05:16] LABS: VBG Ionized Calcium 0.98 mmol/L (1.15-1.35)
[2021-01-03 05:17] LABS: Mean Platelet Volume 10.2 fL (9.4-12.4)
[2021-01-03 05:19] LABS: Basophils % 0.1 %; Hematocrit 33.1 % (37.5-50.1); Hemoglobin 11.5 g/dL (12.9-16.9); Immature Granulocytes % 0.5 % (0-4); Immature Platelets 5.8 % (1.1-6.1); Lymphocytes # 1.3 K/mcL (0.6-4.6); Lymphocytes % 13.4 %; Mean Corpuscular HGB Conc 34.7 g/dL (31.6-35.5); Mean Corpuscular Hemoglobin 30.9 pg (28.0-33.3); Monocytes # 1.2 K/mcL (0.0-1.3); Neutrophils # 7.3 K/mcL (1.6-8.9); Red Blood Count 3.72 M/mcL (4.19-5.50); Red Cell Distribution Width 15.3 % (11.5-14.5); White Blood Count 9.9 K/mcL (4.3-11.1)
[2021-01-03 05:25] LABS: Platelet Count 55 K/mcL (140-400)
[2021-01-03 05:39] LABS: Albumin 3.2 g/dL (3.5-5.7); Albumin/Globulin Ratio 1.9 (1.1-2.2); Bilirubin,Total 0.5 mg/dL (0.3-1.0); Calcium 7.1 mg/dL (8.6-10.3); Globulin 1.7 g/dL (2.4-3.5); Phosphorous 3.4 mg/dL (2.7-4.5); Potassium 4.2 mEq/L (3.5-5.1); Total Protein 4.9 g/dL (6.4-8.9)
[2021-01-03] MEDS: DilTIAZem 50 MG in 0.9 % Sodium Chloride 40 ML IVC SCH ×3 (07:52→07:57)
[2021-01-03] MEDS: niCARdipine 20 MG/200 ML MLS IVC SCH ×10 (07:52→20:13)
[2021-01-03] MEDS: Vasopressin 40 UNIT in D5% in Water 100 ML IVC SCH (07:53)
[2021-01-03] MEDS: D5 IVP SCH (07:53)
[2021-01-03] MEDS: Dexmedetomidine HCl 400 MCG/100 ML MLS IVC SCH (07:53)
[2021-01-03] MEDS: WATER IVP SCH (07:53)
[2021-01-03] MEDS: METHYLENE BLUE IVP SCH (07:53)
[2021-01-03] MEDS ORDERED: D5% in Water 1,000 ML IVC PRN (08:10)
[2021-01-03] MEDS ORDERED: *HR* Dextrose 50 % in Water (Vial) 50 ML VIAL IVP PRN (08:10)
[2021-01-03] MEDS ORDERED: Dextrose Gel 15 GM/37.5 ML TUBE PO PRN ×2 (08:10)
[2021-01-03] MEDS: *HR* Heparin 5,000 UNIT/ML VIAL SQ SCH ×2 (08:58→18:57)
[2021-01-03] MEDS: Chlorhexidine Rinse 15 ML MOUTHWASH MM SCH ×2 (09:04→20:13)
[2021-01-03] MEDS: Aspirin Enteric Coated 81 MG Tablet PO SCH (09:04)
[2021-01-03] MEDS: Furosemide 20 MG/2 ML VIAL IVP SCH ×2 (09:04→20:13)
[2021-01-03] MEDS: Finasteride 5 MG TABLET PO SCH (09:05)
[2021-01-03] MEDS: Pantoprazole 40 MG VIAL IVP SCH (09:05)
[2021-01-03] MEDS: FentaNYL (PF) 1,000 MCG/100 ML IV.SOLN IVC SCH (10:43)
[2021-01-03] MEDS: Insulin LISPRO 300 UNITS/3 ML VIAL SUBQ SCH ×3 (11:20→20:07)
[2021-01-04] MEDS: Metoclopramide 10 MG/2 ML VIAL IVP SCH ×3 (00:04→12:47)
[2021-01-04 04:31] LABS: VBG Ionized Calcium 1.01 mmol/L (1.15-1.35)
[2021-01-04] MEDS: niCARdipine 20 MG/200 ML MLS IVC SCH ×6 (04:57→23:03)
[2021-01-04 05:03] LABS: Basophils % 0.3 %; Red Cell Distribution Width 14.9 % (11.5-14.5)
[2021-01-04 05:05] LABS: Eosinophils % 0.5 %; Hematocrit 29.3 % (37.5-50.1); Hemoglobin 10.1 g/dL (12.9-16.9); Immature Granulocytes % 0.5 % (0-4); Immature Platelets 3.7 % (1.1-6.1); Lymphocytes # 1.6 K/mcL (0.6-4.6); Lymphocytes % 20.9 %; Mean Corpuscular HGB Conc 34.5 g/dL (31.6-35.5); Mean Corpuscular Hemoglobin 30.5 pg (28.0-33.3); Mean Corpuscular Volume 88.5 fL (83.0-100.0); Mean Platelet Volume 10.2 fL (9.4-12.4); Monocytes # 0.9 K/mcL (0.0-1.3); Monocytes % 11.2 %; Neutrophils # 5.2 K/mcL (1.6-8.9); Nucleated Red Blood Cells 0.8 /100 WBC (0); Red Blood Count 3.31 M/mcL (4.19-5.50); Segmented Neutrophils % 66.6 %; White Blood Count 7.8 K/mcL (4.3-11.1)
[2021-01-04 05:06] LABS: Platelet Count 73 K/mcL (140-400)
[2021-01-04] MEDS: *HR* Heparin 5,000 UNIT/ML VIAL SQ SCH ×2 (05:15→19:18)
[2021-01-04 05:19] LABS: Albumin 3.2 g/dL (3.5-5.7); Albumin/Globulin Ratio 1.9 (1.1-2.2); Bilirubin,Total 0.8 mg/dL (0.3-1.0); Calcium 7.2 mg/dL (8.6-10.3); Globulin 1.7 g/dL (2.4-3.5); Phosphorous 2.9 mg/dL (2.7-4.5); Potassium 3.9 mEq/L (3.5-5.1); Total Protein 4.9 g/dL (6.4-8.9)
[2021-01-04] MEDS: Insulin LISPRO 300 UNITS/3 ML VIAL SUBQ SCH ×4 (08:03→20:08)
[2021-01-04] MEDS: Artificial Tears SOLN 15 ML BOTTLE BOTH EYES SCH ×5 (08:59→23:03)
[2021-01-04] MEDS: Finasteride 5 MG TABLET PO SCH (09:00)
[2021-01-04] MEDS: Chlorhexidine Rinse 15 ML MOUTHWASH MM SCH ×2 (09:07→20:07)
[2021-01-04] MEDS: Aspirin Enteric Coated 81 MG Tablet PO SCH (09:07)
[2021-01-04] MEDS: Pantoprazole 40 MG VIAL IVP SCH (10:26)
[2021-01-04] MEDS: polyethylene glycoL 3350 17 GM POWD.PACK PO SCH (10:40)
[2021-01-04] MEDS: Furosemide 20 MG/2 ML VIAL IVP SCH ×2 (18:03→20:10)
[2021-01-04] MEDS: *HR* OxyCODONE/APAP 5/325 TABLET PO PRN (21:35)
[2021-01-05] MEDS: Artificial Tears SOLN 15 ML BOTTLE BOTH EYES SCH ×2 (03:45→08:25)
[2021-01-05] MEDS: *HR* Heparin 5,000 UNIT/ML VIAL SQ SCH ×2 (05:08→17:53)
[2021-01-05 05:30] LABS: Basophils % 0.4 %; Eosinophils # 0.2 K/mcL (0.0-0.6); Eosinophils % 2.5 %; Hematocrit 29.9 % (37.5-50.1); Hemoglobin 10.5 g/dL (12.9-16.9); Immature Granulocytes % 0.3 % (0-4); Lymphocytes # 1.7 K/mcL (0.6-4.6); Lymphocytes % 24.5 %; Mean Corpuscular HGB Conc 35.1 g/dL (31.6-35.5); Mean Corpuscular Hemoglobin 31.5 pg (28.0-33.3); Mean Corpuscular Volume 89.8 fL (83.0-100.0); Mean Platelet Volume 10.1 fL (9.4-12.4); Monocytes # 0.9 K/mcL (0.0-1.3); Monocytes % 12.3 %; Neutrophils # 4.2 K/mcL (1.6-8.9); Platelet Count 106 K/mcL (140-400); Red Blood Count 3.33 M/mcL (4.19-5.50); Red Cell Distribution Width 14.8 % (11.5-14.5); White Blood Count 6.9 K/mcL (4.3-11.1)
[2021-01-05 05:50] LABS: Calcium 8.1 mg/dL (8.6-10.3); Potassium 3.9 mEq/L (3.5-5.1)
[2021-01-05] MEDS: Insulin LISPRO 300 UNITS/3 ML VIAL SUBQ SCH ×4 (08:21→20:56)
[2021-01-05] MEDS: Pantoprazole 40 MG VIAL IVP SCH (08:22)
[2021-01-05] MEDS: Chlorhexidine Rinse 15 ML MOUTHWASH MM SCH ×2 (08:24→20:58)
[2021-01-05] MEDS: polyethylene glycoL 3350 17 GM POWD.PACK PO SCH (08:24)
[2021-01-05] MEDS: Aspirin Enteric Coated 81 MG Tablet PO SCH (08:24)
[2021-01-05] MEDS: Finasteride 5 MG TABLET PO SCH (08:24)
[2021-01-05] MEDS: niCARdipine 20 MG/200 ML MLS IVC SCH (08:25)
[2021-01-05] MEDS ORDERED: Artificial Tears SOLN 15 ML BOTTLE BOTH EYES PRN (10:51)
[2021-01-05] MEDS ORDERED: Ipratropium/Albuterol Neb 3 ML IH PRN (10:51)
[2021-01-05] MEDS ORDERED: Acetaminophen 325 MG TABLET PO PRN (10:51)
[2021-01-05] MEDS ORDERED: Methyl Salicylate/Menthol 85 APPL/85 GM TUBE TP PRN (10:51)
[2021-01-05] MEDS ORDERED: D5% in Water 1,000 ML IVC PRN (10:51)
[2021-01-05] MEDS ORDERED: Ondansetron 4 MG/2 ML VIAL IVP PRN (10:51)
[2021-01-05] MEDS ORDERED: Insulin Regular, Human 100 UNIT/ML IV PRN (10:51)
[2021-01-05] MEDS ORDERED: Dextrose Gel 15 GM/37.5 ML TUBE PO PRN ×2 (10:51)
[2021-01-05] MEDS ORDERED: *HR* Dextrose 50 % in Water (Vial) 50 ML VIAL IVP PRN (10:51)
[2021-01-05] MEDS ORDERED: *HR* OxyCODONE/APAP 5/325 TABLET PO PRN (10:51)
[2021-01-06] MEDS: *HR* Heparin 5,000 UNIT/ML VIAL SQ SCH ×2 (05:24→17:56)
[2021-01-06 08:06] LABS: Basophils % 0.7 %; Eosinophils # 0.3 K/mcL (0.0-0.6); Eosinophils % 5.8 %; Hematocrit 28.3 % (37.5-50.1); Hemoglobin 9.8 g/dL (12.9-16.9); Immature Granulocytes % 0.5 % (0-4); Lymphocytes # 1.5 K/mcL (0.6-4.6); Lymphocytes % 25.6 %; Mean Corpuscular HGB Conc 34.6 g/dL (31.6-35.5); Mean Corpuscular Hemoglobin 31.5 pg (28.0-33.3); Mean Platelet Volume 9.7 fL (9.4-12.4); Monocytes # 0.8 K/mcL (0.0-1.3); Monocytes % 13.1 %; Neutrophils # 3.2 K/mcL (1.6-8.9); Nucleated Red Blood Cells 0.9 /100 WBC (0); Platelet Count 139 K/mcL (140-400); Red Blood Count 3.11 M/mcL (4.19-5.50); Red Cell Distribution Width 14.6 % (11.5-14.5); Segmented Neutrophils % 54.3 %; White Blood Count 5.8 K/mcL (4.3-11.1)
[2021-01-06 08:24] LABS: Calcium 8.8 mg/dL (8.6-10.3)
[2021-01-06] MEDS ORDERED: Pantoprazole 40 MG VIAL IVP SCH (09:00)
[2021-01-06] MEDS: Insulin LISPRO 300 UNITS/3 ML VIAL SUBQ SCH ×4 (09:05→20:53)
[2021-01-06] MEDS: Aspirin Enteric Coated 81 MG Tablet PO SCH (09:06)
[2021-01-06] MEDS: Finasteride 5 MG TABLET PO SCH (09:06)
[2021-01-06] MEDS: Chlorhexidine Rinse 15 ML MOUTHWASH MM SCH ×2 (09:07→20:48)
[2021-01-06] MEDS: polyethylene glycoL 3350 17 GM POWD.PACK PO SCH (09:07)
[2021-01-06] MEDS ORDERED: QUEtiapine Fumarate 25 MG TABLET PO PRN (09:40)
[2021-01-06] MEDS ORDERED: Ibuprofen 600 MG TABLET PO PRN (09:41)
[2021-01-07] MEDS: *HR* Heparin 5,000 UNIT/ML VIAL SQ SCH ×2 (06:08→17:12)
[2021-01-07 07:37] LABS: Basophils # 0.1 K/mcL (0.0-0.2); Eosinophils # 0.4 K/mcL (0.0-0.6); Eosinophils % 7.5 %; Hematocrit 29.5 % (37.5-50.1); Immature Granulocytes % 1.3 % (0-4); Lymphocytes # 1.7 K/mcL (0.6-4.6); Lymphocytes % 31.6 %; Mean Corpuscular HGB Conc 33.9 g/dL (31.6-35.5); Mean Corpuscular Hemoglobin 31.1 pg (28.0-33.3); Mean Corpuscular Volume 91.6 fL (83.0-100.0); Mean Platelet Volume 9.7 fL (9.4-12.4); Monocytes # 0.8 K/mcL (0.0-1.3); Monocytes % 15.7 %; Neutrophils # 2.2 K/mcL (1.6-8.9); Platelet Count 179 K/mcL (140-400); Red Blood Count 3.22 M/mcL (4.19-5.50); Red Cell Distribution Width 14.2 % (11.5-14.5); Segmented Neutrophils % 42.9 %; White Blood Count 5.2 K/mcL (4.3-11.1)
[2021-01-07 07:58] LABS: BUN/Creatinine Ratio 21 (6-26); Blood Urea Nitrogen 29 mg/dL (8-23); Calcium 9.2 mg/dL (8.6-10.3); Carbon Dioxide 28 mEq/L (23-29); Chloride 102 mEq/L (98-107); Glucose 173 mg/dL (70-105); Osmolality,Calculated 294 (280-300); Potassium 4.3 mEq/L (3.5-5.1); Sodium 137 mEq/L (136-145); eGFR For African Americans > 60 (> 60); eGFR For Non-African Americans 50 (> 60)
[2021-01-07] MEDS: Aspirin Enteric Coated 81 MG Tablet PO SCH (08:02)
[2021-01-07] MEDS: Finasteride 5 MG TABLET PO SCH (08:02)
[2021-01-07] MEDS: Chlorhexidine Rinse 15 ML MOUTHWASH MM SCH ×2 (08:02→20:42)
[2021-01-07] MEDS: polyethylene glycoL 3350 17 GM POWD.PACK PO SCH (08:02)
[2021-01-07] MEDS: Insulin LISPRO 300 UNITS/3 ML VIAL SUBQ SCH ×4 (08:17→20:25)
[2021-01-08] MEDS: *HR* Heparin 5,000 UNIT/ML VIAL SQ SCH ×2 (04:53→18:16)
[2021-01-08] MEDS: Insulin LISPRO 300 UNITS/3 ML VIAL SUBQ SCH ×4 (08:31→20:43)
[2021-01-08] MEDS: Aspirin Enteric Coated 81 MG Tablet PO SCH (08:32)
[2021-01-08] MEDS: Chlorhexidine Rinse 15 ML MOUTHWASH MM SCH ×2 (08:32→20:09)
[2021-01-08] MEDS: Finasteride 5 MG TABLET PO SCH (08:32)
[2021-01-08] MEDS: polyethylene glycoL 3350 17 GM POWD.PACK PO SCH (08:33)
[2021-01-09] MEDS: *HR* Heparin 5,000 UNIT/ML VIAL SQ SCH (05:35)
[2021-01-09 07:24] VITALS: BP 102/53; PULSE 78; TEMP 98.1; O2SAT 95
[2021-01-09] MEDS: Insulin LISPRO 300 UNITS/3 ML VIAL SUBQ SCH (09:19)
[2021-01-09] MEDS: Chlorhexidine Rinse 15 ML MOUTHWASH MM SCH (09:20)
[2021-01-09] MEDS: Finasteride 5 MG TABLET PO SCH (09:20)
[2021-01-09] MEDS: Aspirin Enteric Coated 81 MG Tablet PO SCH (09:20)
[2021-01-09] MEDS: polyethylene glycoL 3350 17 GM POWD.PACK PO SCH (09:22)
== END 2021-01-09 10:24 | disposition home health service (06) | DRG 232 ==
LOC: EMEROOARM 08:32 → ICNU 08:32 → 2NNU 01-07 08:41
PROVIDERS: ADMIT Internal Medicine Cardiovascular Disease; ATTEND Thoracic Surgery (Cardiothoracic Vascular Surgery)